=== PATIENT | male | born 1955 | race Caucasian/White ===

== ENCOUNTER 2017-05-06 17:36 | Emergency (ER) | payer OTHER ==
--- NOTE | 2017-05-06 18:36 | EDM.PDOC ---
ED HPI GENERAL MEDICAL PROBLEM - General Chief Complaint: Skin Complaint Stated Complaint: PAIN LT ARM/NEEDS ANTIBIOTIC Time Seen by Provider: 05/06/17 18:17 - History of Present Illness INITIAL COMMENTS - FREE TEXT/NARRATIVE: HISTORY AND PHYSICAL: History of present illness: The patient is a 62-year-old male with no stated medical problems who presents with complaints of recurrent redness to the volar surface of his left forearm and elbow area. Patient says that he was seen at an outside clinic the beginning of March and was treated as a cellulitis with Levaquin and clindamycin and says that his similar symptoms to which he is having today significantly improved with these antibiotics. He was told by the provider that he might need another course of antibiotics but he did not return to the clinic for that reevaluation. He says that it did improve but did not completely go away and now he stating that is becoming more pink and red again and he is concerned the infection is coming back. He is left-hand dominant but has no weakness or neurosensory deficits in that upper extremity. He is able to full range of motion at the elbow wrist and shoulder. He has had no systemic complaints of fever chills nausea vomiting chest pain or shortness of breath and has no other complaints other than concern about the redness and feels he needs to be retreated. He does not have a local provider Review of systems: As per history of present illness and below otherwise all systems reviewed and negative. Past medical history: As per history of present illness and as reviewed below otherwise noncontributory. Surgical history: As per history of present illness and as reviewed below otherwise noncontributory. Social history: No reported history of drug or alcohol abuse. Family history: As per history of present illness and as reviewed below otherwise noncontributory. Physical exam: General: Well-developed well-nourished mildly overweight male who is nontoxic and speaking clearly and easily in the ED. Vital signs of been reviewed by me. HEENT: Atraumatic, normocephalic, negative for conjunctival pallor or scleral icterus, mucous membranes moist, throat clear, neck supple, nontender, trachea midline. Lungs: Clear to auscultation, breath sounds equal bilaterally, chest nontender. Heart: S1S2, regular rate and rhythm no overt murmurs Abdomen: Soft, nondistended, nontender. NABS Skin: There are no evidence of any rashes or lesions and there is only localized area of erythema seen on the left upper extremity please see extremity exam for that information. There is no diaphoresis and turgor is normal Genitourinary: Deferred. Rectal: Deferred. Extremities: Atraumatic, range of motion of all extremities without any defects or deficits. The legs are negative for cords or calf pain. Neurovascular unremarkable. At the left forearm/elbow area on the volar surface there is an ill-defined area of pink erythema and warmth without fluctuance crepitans or skin breaks. The area is not very tender in the compartments are soft. There is no streaking up the arm and there is no axillary adenopathy. Patient has full range of motion of the extremity and has intact distal neurovascular status. Neuro: Awake, alert, oriented. Cranial nerves II through XII unremarkable. Cerebellum unremarkable. Motor and sensory unremarkable throughout. Exam nonfocal. Diagnostics: [] Therapeutics: [] I discussed with the patient that this is likely her recurrent cellulitis and that we could do a workup of that he would like to defer that at this time. I told him I would be happy to give him a second course of antibiotics but that he actually had to follow-up in the clinic because if this course of time of antibiotics does not clear the problem he would need to get more evaluation and care as an outpatient. He is agreeable to this plan. I advised the patient on reasons to return to the ER and have marked the area on his arm Impression: Recurrent cellulitis of the left forearm Definitive disposition and diagnosis as appropriate pending reevaluation and review of above. Left Arm Pain Score (Numeric/FACES): 2 - Related Data Allergies Allergy/AdvReac Type Severity Reaction Status Date / Time No Known Allergies Allergy Verified 05/06/17 17:53 Home Meds: Home Meds . [No Known Home Meds] 05/06/17 [History] Past Medical History - Past Health History Medical/Surgical History: Denies Medical/Surgical History Social & Family History - Tobacco Use Smoking Status *Q: Never Smoker Second Hand Smoke Exposure: No - Caffeine Use Caffeine Use: Reports: None - Recreational Drug Use Recreational Drug Use: No ED ROS GENERAL - Review of Systems Review Of Systems: ROS reveals no pertinent complaints other than HPI. ED EXAM, SKIN/RASH Exam: See Below (See dictation) Course - Vital Signs Last Recorded V/S: Last Vital Signs Temp 37.1 C 05/06/17 17:57 Pulse 87 05/06/17 17:57 Resp 18 05/06/17 17:57 BP 138/118 H 05/06/17 17:57 Pulse Ox 95 05/06/17 17:57 Departure - Departure Time of Disposition: 18:36 Disposition: Home, Self-Care 01 Condition: Good Clinical Impression: Cellulitis Qualifiers: Site of cellulitis: extremity Site of cellulitis of extremity: upper extremity Laterality: left Qualified Code(s): L03.114 - Cellulitis of left upper limb - Discharge Information Referrals: PCP,None [Primary Care Provider] - Additional Instructions: The following information is given to patients seen in the emergency department who are being discharged to home. This information is to outline your options for follow-up care. We provide all patients seen in our emergency department with a follow-up referral. The need for follow-up, as well as the timing and circumstances, are variable depending upon the specifics of your emergency department visit. If you don't have a primary care physician on staff, we will provide you with a referral. We always advise you to contact your personal physician following an emergency department visit to inform them of the circumstance of the visit and for follow-up with them and/or the need for any referrals to a consulting specialist. The emergency department will also refer you to a specialist when appropriate. This referral assures that you have the opportunity for followup care with a specialist. All of these measure are taken in an effort to provide you with optimal care, which includes your followup. Under all circumstances we always encourage you to contact your private physician who remains a resource for coordinating your care. When calling for followup care, please make the office aware that this follow-up is from your recent emergency room visit. If for any reason you are refused follow-up, please contact the [facility] emergency department at and ask to speak to the emergency department charge nurse. [facility] Primary care- Internal Medicine and Family [address] [address] Please call our clinic tomorrow the reevaluated in the next few days for further care and management of this problem. Please take antibiotics as prescribed. Return to ER as needed and as we discussed
[2017-05-06 18:47] VITALS: BP 174/97
== END 2017-05-06 18:50 | disposition home or self-care (01) ==
LOC: MW.ED 17:36
DX: L03.114 Cellulitis of left upper limb (principal)
CPT/HCPCS: 99282; 99283